=== PATIENT | male | born 1980 | race Caucasian/White ===

== ENCOUNTER 2023-12-04 17:21 | Inpatient (IN) | payer MEDICAID ==
[~2023-12-04] VITALS: Ht 175.3 cm; Wt 175.5 kg
[2023-12-04 22:05] VITALS: BP 170/97; TEMP 98; O2SAT 98
[2023-12-04] MEDS ORDERED: ASPI-1420 PO (22:39)
[2023-12-04] MEDS ORDERED: AMLO2.5T4 PO (22:39)
[2023-12-05] VITALS (8 sets, daily range): BP systolic 131–200; BP diastolic 78–125; TEMP 97.3–98.9; O2SAT 94–98
[2023-12-05] MEDS ORDERED: ONDANSETRON HCL/PF 4 MG/2 ML VIAL IVP PRN (00:30)
[2023-12-05] MEDS ORDERED: Z GUARD REMEDY 4 OZ OINT TP PRN (00:30)
[2023-12-05] MEDS ORDERED: MAGNESIUM HYDROXIDE 30 ML UDC PO PRN (00:30)
[2023-12-05] MEDS ORDERED: MAG HYDROX/AL HYDROX/SIMETH 30 ML UDC PO PRN (00:30)
[2023-12-05] MEDS ORDERED: KETOROLAC TROMETHAMINE INJ 30 MG/ML VIAL IM PRN (00:30)
[2023-12-05] MEDS: ACETAMINOPHEN 325 MG TABLET PO PRN (00:49)
[2023-12-05] MEDS: KETOROLAC TROMETHAMINE INJ 30 MG/ML VIAL IM ONE (03:41)
[2023-12-05] MEDS: ASPIRIN 81 MG TAB.CHEW PO SCH (09:16)
[2023-12-05] MEDS: AMLODIPINE BESYLATE 5 MG TABLET PO SCH (09:17)
[2023-12-05 11:12] LABS: THYROID STIMULATING HORMONE 4.62 uIU/mL (0.358-3.74)
[2023-12-05] MEDS: hydrALAZINE HCL IV 20 MG VIAL IV PRN (13:24)
[2023-12-05] MEDS ORDERED: LORAZEPAM 0.5 MG TABLET PO PRN (16:30)
[2023-12-05] MEDS: AMLODIPINE BESYLATE 5 MG TABLET PO ONE (16:32)
[2023-12-05] MEDS: LORAZEPAM 1 MG TABLET PO PRN (16:33)
[2023-12-05] MEDS: LISINOPRIL (20MG) 20 MG TABLET PO SCH (16:34)
[2023-12-05] MEDS: MORPHINE SULFATE INJ 4 MG/ML DISP.SYRIN IV PRN (18:35)
[2023-12-06] VITALS: BP 132/74; TEMP 98.2; O2SAT 97
[2023-12-06 04:00] VITALS: BP 157/75; TEMP 98.1; O2SAT 97
[2023-12-06 06:37] LABS: BASOPHILS % (AUTO) 0.6 % (0.0-2.0); EOSINOPHILS # (AUTO) 0.1 K/uL (0.0-0.7); EOSINOPHILS % (AUTO) 1.9 % (0.0-6.0); HEMATOCRIT 46 % (39-51); HEMOGLOBIN 15.7 g/dL (13.5-17.5); LYMPHOCYTES # (AUTO) 2.1 K/uL (0.8-4.8); LYMPHOCYTES % (AUTO) 27.4 % (20.0-44.0); MEAN CORPUSCULAR HEMOGLOBIN 30 PG (26.0-33.0); MEAN CORPUSCULAR HGB CONC 34 g/dl (31.0-36.0); MEAN CORPUSCULAR VOLUME 87 fL (80-96); MONOCYTES # (AUTO) 0.5 K/uL (0.1-1.30); MONOCYTES % (AUTO) 6.4 % (2.0-12.0); NEUTROPHILS % (AUTO) 63.7 % (43.0-81.0); PLATELET COUNT (AUTO) 253 K/uL (150-450); RED BLOOD CELL COUNT(AUTO) 5.29 MIL/uL (4.5-6.0); RED CELL DISTRIBUTION WIDTH 14.2 % (11.5-15.0); WHITE BLOOD COUNT (AUTO) 7.8 K/uL (4.3-11.0)
[2023-12-06 07:17] LABS: MAGNESIUM 2.3 mg/dL (1.8-2.4); PHOSPHORUS 4.5 mg/dL (2.5-4.9); POTASSIUM 3.8 mmol/L (3.5-5.1)
[2023-12-06 08:00] VITALS: BP 155/99; TEMP 97.7; O2SAT 97
[2023-12-06] MEDS: AMLODIPINE BESYLATE 5 MG TABLET PO SCH (09:02)
[2023-12-06] MEDS: HYDROCHLOROTHIAZIDE 25 MG TABLET PO SCH (09:46)
[2023-12-06] MEDS ORDERED: LISI20TA30 PO (11:45)
[2023-12-06] MEDS ORDERED: HYDR25TA4 PO (11:45)
[2023-12-06] MEDS ORDERED: AMLO10TA4 PO (11:45)
[2023-12-06 12:00] VITALS: BP 123/69; TEMP 97.5; O2SAT 97
== END 2023-12-06 13:38 | disposition home or self-care (01) | DRG 199 ==
LOC: TELE1 21:33 → MEDSG1 12-06 11:43
DX: I16.0 Hypertensive urgency (principal); I21.A1 Myocardial infarction type 2; Z68.43 Body mass index [BMI] 50.0-59.9, adult; G47.30 Sleep apnea, unspecified; E66.01 Morbid (severe) obesity due to excess calories; Z71.3 Dietary counseling and surveillance; I10 Essential (primary) hypertension; Z79.82 Long term (current) use of aspirin; Z79.899 Other long term (current) drug therapy
CPT/HCPCS: 36415; 76700-TC; 80048-TC; 80061-TC; 83735-TC; 84100-TC; 84439-TC; 84443-TC; 84484-TC; 85025-TC; 87081-TC; 93307-TC; G0378; J0360; J1885; J2270